=== PATIENT | male | born 1990 | race Caucasian/White ===

== ENCOUNTER 2016-05-02 22:58 | Emergency (ER) | payer OTHER ==
[~2016-05-02] VITALS: Ht 170.2 cm; Wt 73.5 kg
[~2016-05-02 22:58] MED LIST: IBUPROFEN600 MG PO; ULTRAM50 MG PO
[2016-05-02 23:45] LABS: HEMATOCRIT 42.3 % (38.0-50.0); MCH 29.5 PG (29.0-34.0); MCHC 34.5 G/DL (30.0-36.0); MCV 85.5 FL (86-99); MEAN PLAT.VOLUME 10.7 uM^3 (9.0-12.4); PLATELET COUNT 189 K/uL (156-360); RBC DIS.WIDTH-CV 13.1 % (11.8-14.6); RBC DIS.WIDTH-SD 40.1 % (39-53); RED BLOOD COUNT 4.95 M/uL (4.00-5.50); WHITE BLOOD COUNT 10.5 K/uL (4.1-10.2)
[2016-05-02 23:57] LABS: CHLORIDE 105 mEq/L (99-109); POTASSIUM 3.7 mEq/L (3.7-5.4); SODIUM 140 mEq/L (136-147)
[2016-05-02 23:59] LABS: GLUCOSE 96 mg/dL (70-99)
[2016-05-03 00:01] LABS: ANION GAP 10 MEQ/L (2-14)
[2016-05-03 00:03] LABS: GFR ESTIMATE (CALCULATED) > 59 mL/min/
[2016-05-03 00:04] LABS: UREA NITROGEN (BUN) 14 mg/dL (9-23)
[2016-05-03 00:07] LABS: TROP-I INTERPRETATION NEGATIVE; TROPONIN-I < 0.01 ng/mL (0.0-0.30)
[2016-05-03 02:02] LABS: TROP-I INTERPRETATION NEGATIVE; TROPONIN-I < 0.01 ng/mL (0.0-0.30)
[2016-05-03 02:56] VITALS: BP 138/76
== END 2016-05-03 02:56 | disposition home or self-care (01) ==
LOC: EME 22:58
PROVIDERS: Emergency Medicine
DX: F12.90 Cannabis use, unspecified, uncomplicated (principal); R07.9 Chest pain, unspecified
CPT/HCPCS: 71020; 80048; 84484; 85027; 93005; 99281; 99283

== ENCOUNTER 2016-06-12 14:54 | Emergency (ER) | payer OTHER ==
[~2016-06-12] VITALS: Ht 172.7 cm; Wt 72.3 kg
[2016-06-12 16:09] VITALS: BP 112/66
== END 2016-06-12 16:11 | disposition home or self-care (01) ==
LOC: TRA 14:54 → EME 14:54
DX: S06.330A Contusion and laceration of cerebrum, unspecified, without loss of consciousness, initial encounter (principal); V48.1XXA Car passenger injured in noncollision transport accident in nontraffic accident, initial encounter; F17.200 Nicotine dependence, unspecified, uncomplicated
CPT/HCPCS: 70450; 99281; 99282